=== PATIENT | female | born 1975 ===

== ENCOUNTER 2024-10-06 05:50 | Day surgery (SDC) | payer OTHER ==
[2024-10-03 08:38] LABS: BASO % 0.6 % (0.1-1.2); EOS # 0.06 (0.04-0.54); EOS % 1.0 % (0.7-7.0); LYMPH # 2.04 (1.18-3.74); LYMPH % 33.0 % (19.3-53.1); MEAN PLATELET VOLUME 10.20 fl (9.4-12.4); MONO # 0.38 (0.24-0.82); MONO % 6.1 % (4.7-12.5); NEUT # 3.65 (1.56-6.13); NEUT % 59.1 % (34.0-71.1); RED CELL DISTRIBUTION WIDTH 11.6 % (11.6-14.4)
[2024-10-03 08:49] LABS: URINE APPEARANCE Clear; URINE BILIRRUBIN Negative (NEGATIVE); URINE BLOOD Negative; URINE COLOR Yellow; URINE GLUCOSE Negative (NEGATIVE); URINE KETONE Negative (NEGATIVE); URINE LEUKOCYTE Small; URINE NITRATE Positive; URINE PROTEIN Negative (NEGATIVE); URINE UROBILINOGEN 0.2 E.U./dl
[2024-10-03 08:50] VITALS: BP 109/72
[2024-10-03 08:50] LABS: URINE EPITHELIAL CELLS 23.0 uL (0.0-38.8); URINE RBC 8.0 uL (0.0-20.8); URINE WBC 92.2 uL (0.0-23.2)
[2024-10-03 09:02] LABS: INR 0.94
[2024-10-03 09:02] LABS: URINE BACTERIA > 9821.5 uL (0.0-1933); URINE CAST 0.00 uL (0.0-1.40)
[2024-10-03 09:16] LABS: ALT/SGPT 27.0 U/L (12-78); AST/SGOT 18.0 U/L (15-37); BILIRUBIN TOTAL 0.9 mg/dL (0.3-1.2); BUN CREA RATIO 15.0 (7.0-25.0); CREATININE SERUM 0.85 mg/dL (0.55-1.02); GFR 71.69; GLOBULINA 4.1 G/DL (2.4-3.5); GLUCOSE FASTING 94.0 mg/dL (65-100); OSMOLALITY SERUM 279.0 MOSM/KG (275-295)
[~2024-10-06] VITALS: Ht 172.7 cm; Wt 101.6 kg
[2024-10-06] MEDS ORDERED: POVIDONE-IODINE 118 ML BOTT TOP ONE (07:45)
[2024-10-06] MEDS ORDERED: CHLORHEXIDINE GLUCONATE 120 ML BOTTLE TOP ONE (07:45)
[2024-10-06] MEDS ORDERED: CEFAZOLIN SODIUM 1,000 MG VIAL IV ONE (07:45)
[2024-10-06] MEDS ORDERED: DOXYCYCLINE HY100 M2 PO (08:51)
[2024-10-06] MEDS ORDERED: IBU600 MG PO (08:52)
== END 2024-10-06 14:35 | disposition home or self-care (01) ==
LOC: CIR.AMB 05:50
PROVIDERS: ATTEND Obstetrics & Gynecology
DX: D25.0 Submucous leiomyoma of uterus (principal); N80.03 Adenomyosis of the uterus; N84.0 Polyp of corpus uteri